=== PATIENT | female | born 1980 | race Caucasian/White ===

== ENCOUNTER 2019-12-11 08:00 | Outpatient (CLI) | payer OTHER ==
[2019-12-11 20:04] LABS: BASOPHILS % (AUTO) 0.4 %; EOSINOPHILS # (AUTO) 0.2 10^3/uL (0.0-0.7); EOSINOPHILS % (AUTO) 2.9 %; HGB - HEMOGLOBIN 11.3 g/dL (12.0-16.0); LYMPHOCYTES # (AUTO) 1.8 10^3/uL (1.5-3.5); LYMPHOCYTES % (AUTO) 22.5 %; MEAN CORPUSCULAR HEMOGLOBIN 28.4 pg (27.0-31.0); MEAN CORPUSCULAR HGB CONC 31.7 g/dL (32.0-36.0); MEAN CORPUSCULAR VOLUME 89.4 fL (81.0-99.0); MONOCYTES # (AUTO) 0.5 10^3/uL (0.0-1.0); MONOCYTES % (AUTO) 6.3 %; NEUTROPHILS # (AUTO) 5.5 10^3/uL (1.5-6.6); NEUTROPHILS % (AUTO) 67.5 %; PLT - PLATELET COUNT 270 10^3/uL (130-450); RED BLOOD COUNT 3.98 10^6/uL (4.20-5.40); WHITE BLOOD COUNT 8.2 x10^3/uL (4.8-10.8)
[2019-12-11 20:28] LABS: ALBUMIN 4.3 g/dL (3.2-5.5); ALBUMIN/GLOBULIN RATIO 1.4 (1.0-2.2); BILIRUBIN,TOTAL 0.4 mg/dL (0.2-1.0); CALCIUM 9.1 mg/dL (8.5-10.3); CREATININE 0.7 mg/dL (0.4-1.0); MAGNESIUM 2.3 mg/dL (1.7-2.8); TOTAL PROTEIN 7.4 g/dL (6.7-8.2)
== END 2019-12-11 23:59 | disposition home or self-care (01) ==
LOC: LAB.S 08:00
PROVIDERS: ATTEND Physician Assistant Medical
DX: R53.83 Other fatigue (principal); R06.02 Shortness of breath; R42 Dizziness and giddiness
CPT/HCPCS: 36415; 80053; 83735; 84443; 85025

== ENCOUNTER 2020-11-03 12:38 | Emergency (ER) | payer OTHER ==
[2020-11-03 13:01] VITALS: BP 132/74
--- NOTE | 2020-11-03 13:01 | ED Physician Documentation ---
PD HPI SKIN - Stated complaint Stated Complaint: BAT EXPOSURE - Chief complaint Chief Complaint: General - History obtained from History obtained from: Patient - History of Present Illness Timing - onset: Last night (A bat flying in theirThe patient awoke to a sound of fluttering wings and loft area of the bedroom/living room. No direct contact with the bat. The patient went into the bathroom while the open the door and the bat was able to fly out.) Timing - details: Other (The patient researched bat exposures online and found information about risk for rabies. They are here for discussion and evaluation.) Location: Other (no direct contact with the bat) Similar symptoms before: Has not had sx before Recently seen: Other Review of Systems Skin: denies: Abrasion (s), Laceration (s) PD PAST MEDICAL HISTORY - Past Medical History Cardiovascular: None Respiratory: None - Allergies Allergies/Adverse Reactions: Allergies Allergy/AdvReac Type Severity Reaction Status Date / Time ciprofloxacin Allergy Hives Verified 11/03/20 12:58 PD ED PE NORMAL - Vitals Vital signs reviewed: Yes - General General: Alert and oriented X 3, No acute distress, Well developed/nourished - Derm Derm: Normal color, Warm and dry - Neuro Neuro: Alert and oriented X 3, Normal speech Results - Vitals Vitals: Vital Signs - 24 hr 11/03/20 12:56 Temperature 36.3 C L Heart Rate 69 Respiratory 15 Rate Blood Pressure 132/74 H O2 Saturation 99 Oxygen O2 Source Room air PD MEDICAL DECISION MAKING - ED course Complexity details: considered differential, d/w patient ED course: The patient did not have any direct contact with the bat. Other family members were well remote in other rooms or not in direct area. Seems a very low incidence chance of rabies exposure. I discussed with the parents about the low risk probability and the overall prevalence of 1% in wild bats and up to 6% in those brought in for testing in the [place] area. We discussed the series of immunoglobulin and vaccines required for treatment. Shared decision amongst them is to not do rabies treatment. Departure - Departure Disposition: 01 Home, Self Care Clinical Impression: Exposure to bat without known bite Condition: Stable Record reviewed to determine appropriate education?: Yes Comments: This sounds very low risk exposure for the rabies virus. I did just look up the prevalence of rabies in wild bats in [place] and it's 1% of bats in the wild with up to 6% of those submitted for testing have rabies virus (so a skewed sampling). So low risk among normal acting bats. The main route for infection is by bites. Discharge Date/Time: 11/03/20 13:58
== END 2020-11-03 13:58 | disposition home or self-care (01) ==
LOC: ED 12:38
DX: Z20.3 Contact with and (suspected) exposure to rabies (principal)
CPT/HCPCS: 99281

== ENCOUNTER 2020-11-04 06:42 | Emergency (ER) | payer OTHER ==
[2020-11-04 06:51] VITALS: BP 126/85
--- NOTE | 2020-11-04 07:36 | ED Physician Documentation ---
History of Present Illness - Stated complaint Stated Complaint: BAT EXPOSURE - Chief complaint Chief Complaint: General - History obtained from History obtained from: Patient - Additonal information Additional information: 40yF presents for second opinion after being seen for possible bat exposure 2 days ago. Review of Systems Constitutional: denies: Fever GI: denies: Nausea Skin: denies: Bite / sting PD PAST MEDICAL HISTORY - Past Medical History Cardiovascular: None Respiratory: None GI: GERD - Allergies Allergies/Adverse Reactions: Allergies Allergy/AdvReac Type Severity Reaction Status Date / Time ciprofloxacin Allergy Hives Verified 11/04/20 06:54 - Social History Does the pt smoke?: No Smoking Status: Never smoker PD ED PE NORMAL - Vitals Vital signs reviewed: Yes - General General: Alert and oriented X 3, No acute distress, Well developed/nourished - HEENT HEENT: Atraumatic, PERRL, EOMI - Neck Neck: Supple, no meningeal sign - Cardiac Cardiac: RRR - Respiratory Respiratory: No respiratory distress, Clear bilaterally - Abdomen Abdomen: Non tender, Non distended - Derm Derm: Normal color, Warm and dry, Other (no bites, abrasions, lacerations) - Extremities Extremities: No deformity - Neuro Neuro: Alert and oriented X 3 - Psych Psych: Other (anxious mood and affect) Results - Vitals Vitals: Vital Signs - 24 hr 11/04/20 06:47 Temperature 36.6 C Heart Rate 103 H Respiratory 18 Rate Blood Pressure 126/85 H O2 Saturation 95 Oxygen O2 Source Room air PD MEDICAL DECISION MAKING - ED course ED course: 40yF with chronic Lyme, Caballero disease, 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 I advised her that she is low risk, having been awake during the encounter, with no evidence of bite mccoy. Did offer to give RIG and vaccine series but patient declined. Will provide reading material. Advised her to f/u with her PMD. Departure - Departure Disposition: 01 Home, Self Care Clinical Impression: Exposure to bat without known bite Condition: Good Comments: You were seen in the emergency department for second opinion about obtaining the rabies immunoglobin and vaccine. Below is some information about the vaccine series. Please contact your primary doctor with any other questions. Return to the emergency department if you decide you would like the vaccine series. Rabies virus vaccine: Patient drug information Copyright 7562-0395 [employer]echies.in. All rights reserved. (For additional information see "Rabies virus vaccine: Drug information" and see "Rabies virus vaccine: Pediatric drug information") You must carefully read the "Consumer Information Use and Disclaimer" below in order to understand and correctly use this information. Brand Names: [place] Imovax Rabies; RabAvert Brand Names: Sangeetha Imovax Rabies What is this drug used for? It is used to prevent rabies. What do I need to tell my doctor BEFORE I take this drug? If you are allergic to this drug; any part of this drug; or any other drugs, foods, or substances. Tell your doctor about the allergy and what signs you had. This drug may interact with other drugs or health problems. Tell your doctor and pharmacist about all of your drugs (prescription or OTC, natural products, vitamins) and health problems. You must check to make sure that it is safe for you to take this drug with all of your drugs and health problems. Do not start, stop, or change the dose of any drug without checking with your doctor. What are some things I need to know or do while I take this drug? Tell all of your health care providers that you take this drug. This includes your doctors, nurses, pharmacists, and dentists. This drug may not protect all people who use it. Talk with the doctor. This drug is made from human plasma (part of the blood) and may have viruses that may cause disease. This drug is screened, tested, and treated to lower the chance that it carries an infection. Talk with the doctor. Very bad side effects have rarely happened with this drug. These include allergic reactions and brain or nervous system problems. Sometimes, brain problems have been deadly. Talk with the doctor. Tell your doctor if you are , plan on getting , or are breast- feeding. You will need to talk about the benefits and risks to you and the baby. What are some side effects that I need to call my doctor about right away? WARNING/CAUTION: Even though it may be rare, some people may have very bad and sometimes deadly side effects when taking a drug. Tell your doctor or get medical help right away if you have any of the following signs or symptoms that may be related to a very bad side effect: Signs of an allergic reaction, like rash; hives; itching; red, swollen, blistered, or peeling skin with or without fever; wheezing; tightness in the chest or throat; trouble breathing, swallowing, or talking; unusual hoarseness; or swelling of the mouth, face, lips, tongue, or throat. Signs of meningitis like headache with fever, stiff neck, upset stomach, confusion, or if lights bother the eyes. Feeling very tired or weak. Not able to move face muscles as much. Muscle weakness. Not able to move. Change in eyesight. Swollen gland. Very bad dizziness or passing out. A burning, numbness, or tingling feeling that is not normal. Trouble controlling body movements. What are some other side effects of this drug? All drugs may cause side effects. However, many people have no side effects or only have minor side effects. Call your doctor or get medical help if any of these side effects or any other side effects bother you or do not go away: Pain, redness, or swelling where the shot was given. Flu-like signs. These include headache, weakness, fever, shakes, aches, pains, and sweating. Upset stomach. Muscle or joint pain. Dizziness. These are not all of the side effects that may occur. If you have questions about side effects, call your doctor. Call your doctor for medical advice about side effects. You may report side effects to your national health agency. How is this drug best taken? Use this drug as ordered by your doctor. Read all information given to you. Follow all instructions closely. It is given as a shot into a muscle. What do I do if I miss a dose? Call your doctor to find out what to do. How do I store and/or throw out this drug? If you need to store this drug at home, talk with your doctor, nurse, or pharmacist about how to store it. General drug facts If your symptoms or health problems do not get better or if they become worse, call your doctor. Do not share your drugs with others and do not take anyone else's drugs. Keep all drugs in a safe place. Keep all drugs out of the reach of children and pets. Throw away unused or drugs. Do not flush down a toilet or pour down a drain unless you are told to do so. Check with your pharmacist if you have questions about the best way to throw out drugs. There may be drug take-back programs in your area. Some drugs may have another patient information leaflet. If you have any questions about this drug, please talk with your doctor, nurse, pharmacist, or other health care provider. If you think there has been an overdose, call your poison control center or get medical care right away. Be ready to tell or show what was taken, how much, and when it happened. CDC Information Vaccine Information Statements (VIS) are made by the staff of the Centers for Disease Control and Prevention (CDC). Each VIS gives information to properly inform the adult receiving the vaccine or, in the case of a minor, the child's parent or legal union representative about the risks and benefits of each vaccine. Before a doctor vaccinates a child or an adult, the provider is required by the National Childhood Vaccine Injury Act to give a copy of the VIS. You can also get foreign language versions. https://www.cdc.gov/vaccines/hcp/vis/vis-statements/rabies.html Last Reviewed Date 2019-01-06 Consumer Information Use and Disclaimer This information should not be used to decide whether or not to take this medicine or any other medicine. Only the healthcare provider has the knowledge and training to decide which medicines are right for a specific patient. This information does not endorse any medicine as safe, effective, or approved for treating any patient or health condition. This is only a brief summary of general information about this medicine. It does NOT include all information about the possible uses, directions, warnings, precautions, interactions, adverse effects, or risks that may apply to this medicine. This information is not specific medical advice and does not replace information you receive from the healthcare provider. You must talk with the healthcare provider for complete information about the risks and benefits of using this medicine. The use of this information is governed by the [employer] End User License Agreement, available at https://www.[employer].Dogeo/en/solutions/appsplit/about/leodan. 202 [employer]. and its affiliates and/or licensors. All rights reserved.
== END 2020-11-04 07:41 | disposition home or self-care (01) ==
LOC: ED 06:42
DX: Z20.3 Contact with and (suspected) exposure to rabies (principal)
CPT/HCPCS: 99281

== ENCOUNTER 2020-11-06 12:46 | Emergency (ER) | payer OTHER ==
[2020-11-06] MEDS ORDERED: RABIES VACCINE 2.5 UNIT SYRINGE IM ONE (14:03)
[2020-11-06] MEDS ORDERED: RABIES IMMUNE GLOBULIN 300 UNITS/2 ML IM STA (14:03)
--- NOTE | 2020-11-06 14:14 | ED Physician Documentation ---
History of Present Illness - Stated complaint Stated Complaint: RABIE SHOT - Chief complaint Chief Complaint: General - History obtained from History obtained from: Patient - Additonal information Additional information: 4 mornings ago she was in the room with a bat. That was subsequently released and not available for examination. Had what might be considered a bite on her back which is now healed. Third visit here for same and now she would like to go ahead with vaccination. Review of Systems Constitutional: reports: Reviewed and negative Nose: reports: Reviewed and negative Throat: reports: Reviewed and negative PD PAST MEDICAL HISTORY - Past Medical History Cardiovascular: None Respiratory: None GI: GERD - Present Medications Home Medications: Ambulatory Orders Medication Instructions Recorded Confirmed Rabies Vaccine [Rabavert] 2.5 unit IM ONCE #3 11/06/20 - Allergies Allergies/Adverse Reactions: Allergies Allergy/AdvReac Type Severity Reaction Status Date / Time ciprofloxacin Allergy Hives Verified 11/06/20 13:01 - Social History Does the pt smoke?: No Smoking Status: Never smoker PD ED PE NORMAL - Vitals Vital signs reviewed: Yes - General General: Alert and oriented X 3, No acute distress - Neuro Neuro: Alert and oriented X 3, Normal speech - Psych Psych: Normal mood, Normal affect Results - Vitals Vitals: Vital Signs - 24 hr 11/06/20 12:59 Temperature 36.5 C Heart Rate 107 H Respiratory 14 Rate Blood Pressure 129/86 H O2 Saturation 100 Oxygen O2 Source Room air Departure - Departure Disposition: 01 Home, Self Care Clinical Impression: Exposure to bat without known bite Condition: Good Record reviewed to determine appropriate education?: Yes Instructions: Rabies Prescriptions: Rabies Vaccine [Rabavert] 2.5 unit IM ONCE #3 Comments: You will need subsequent vaccinations for rabies on days 3, 7, and 14. [facility] carry these. I am writing a prescription for same you should call them and see if they have it in stock. If not you can return for subsequent vaccinations on Wednesday, next Wednesday, and the Wednesday after.
[2020-11-06 16:01] VITALS: BP 130/84
== END 2020-11-06 16:01 | disposition home or self-care (01) ==
LOC: ED 12:46
DX: Z20.3 Contact with and (suspected) exposure to rabies (principal); Z29.14 Encounter for prophylactic rabies immune globulin
CPT/HCPCS: 90471; 96372; 99282; 99283

== ENCOUNTER 2020-11-09 14:32 | Emergency (ER) | payer OTHER ==
[2020-11-09] MEDS ORDERED: RABIES VACCINE 2.5 UNIT SYRINGE IM ONE (14:36)
[2020-11-09 14:49] VITALS: BP 137/100
--- NOTE | 2020-11-09 15:02 | ED Physician Documentation ---
History of Present Illness - Stated complaint Stated Complaint: RABIES SHOT - Chief complaint Chief Complaint: General - History obtained from History obtained from: Patient - History of Present Illness Timing: How many weeks ago (1) - Additonal information Additional information: 40-year-old female had an exposure to a bat in her home last week has started on rabies vaccine. She is here today for her second shot. She has no complaints she has not otherwise been ill. She has not had her Covid vaccination. Review of Systems Constitutional: denies: Fever Eyes: denies: Decreased vision Ears: denies: Ear pain Nose: denies: Congestion Throat: denies: Sore throat Respiratory: denies: Cough GI: denies: Vomiting, Diarrhea PD PAST MEDICAL HISTORY - Past Medical History Cardiovascular: None Respiratory: None GI: GERD - Present Medications Home Medications: Ambulatory Orders Medication Instructions Recorded Confirmed Rabies Vaccine [Rabavert] 2.5 unit IM ONCE #3 11/06/20 - Allergies Allergies/Adverse Reactions: Allergies Allergy/AdvReac Type Severity Reaction Status Date / Time ciprofloxacin Allergy Hives Verified 11/06/20 13:01 - Social History Does the pt smoke?: No Smoking Status: Never smoker PD ED PE NORMAL - Vitals Vital signs reviewed: Yes (tachy and hypertensive ) - General General: Alert and oriented X 3, No acute distress, Well developed/nourished - HEENT HEENT: Atraumatic, PERRL, EOMI - Respiratory Respiratory: No respiratory distress - Derm Derm: Normal color, Warm and dry - Extremities Extremities: No deformity, No edema - Neuro Neuro: Alert and oriented X 3, 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 Departure - Departure Disposition: 01 Home, Self Care Clinical Impression: Exposure to bat without known bite Condition: Stable Instructions: Rabies Follow-Up: Faith Eller ARNP [Credentialed Staff Provider] - Comments: 3rd dose is due WednesdayNov 13.
== END 2020-11-09 15:37 | disposition home or self-care (01) ==
LOC: ED 14:32
DX: Z20.3 Contact with and (suspected) exposure to rabies (principal); Z29.14 Encounter for prophylactic rabies immune globulin
CPT/HCPCS: 90471

== ENCOUNTER 2020-11-18 08:00 | Outpatient (CLI) | payer OTHER | END 2020-11-18 23:59 | disposition home or self-care (01) | LOC: LAB.S 08:00 | PROVIDERS: ATTEND Emergency Medicine | DX: Z01.84 Encounter for antibody response examination (principal); Z20.3 Contact with and (suspected) exposure to rabies | CPT/HCPCS: 36415; 81599; 86382 ==

== ENCOUNTER 2021-01-29 08:00 | Outpatient (CLI) | payer OTHER ==
[2021-01-29 14:52] LABS: BASOPHILS % (AUTO) 0.5 %; EOSINOPHILS # (AUTO) 0.2 10^3/uL (0.0-0.7); EOSINOPHILS % (AUTO) 2.7 %; HGB - HEMOGLOBIN 11.6 g/dL (12.0-16.0); LYMPHOCYTES # (AUTO) 1.4 10^3/uL (1.5-3.5); LYMPHOCYTES % (AUTO) 21.5 %; MEAN CORPUSCULAR HEMOGLOBIN 26.4 pg (27.0-31.0); MEAN CORPUSCULAR HGB CONC 31.4 g/dL (32.0-36.0); MEAN CORPUSCULAR VOLUME 84.3 fL (81.0-99.0); MEAN PLATELET VOLUME 10.7 fL (7.9-10.8); MONOCYTES # (AUTO) 0.5 10^3/uL (0.0-1.0); MONOCYTES % (AUTO) 7.2 %; NEUTROPHILS # (AUTO) 4.5 10^3/uL (1.5-6.6); NEUTROPHILS % (AUTO) 67.9 %; PLT - PLATELET COUNT 298 10^3/uL (130-450); RED BLOOD COUNT 4.39 10^6/uL (4.20-5.40); RED CELL DISTRIBUTION WIDTH 16.2 % (12.0-15.0); WHITE BLOOD COUNT 6.6 x10^3/uL (4.8-10.8)
[2021-01-29 15:29] LABS: ALBUMIN 4.4 g/dL (3.2-5.5); ALBUMIN/GLOBULIN RATIO 1.3 (1.0-2.2); BILIRUBIN,TOTAL 0.6 mg/dL (0.2-1.0); CALCIUM 9.3 mg/dL (8.5-10.3); CREATININE 0.5 mg/dL (0.4-1.0); POTASSIUM 4.3 mmol/L (3.5-5.0); TOTAL PROTEIN 7.7 g/dL (6.7-8.2)
== END 2021-01-29 23:59 ==
LOC: LAB.S 08:00
PROVIDERS: ATTEND Physician Assistant
DX: R19.7 Diarrhea, unspecified (principal)
CPT/HCPCS: 36415; 80053; 83690; 85025

== ENCOUNTER 2021-02-01 16:03 | Emergency (ER) | payer OTHER ==
[2021-02-01 18:04] VITALS: BP 130/85
[2021-02-01] MEDS ORDERED: SODIUM CHLORIDE 0.9% 1,000 ML IV STA (18:04)
[2021-02-01 18:17] LABS: BASOPHILS % (AUTO) 0.4 %; EOSINOPHILS # (AUTO) 0.2 10^3/uL (0.0-0.7); EOSINOPHILS % (AUTO) 2.1 %; HGB - HEMOGLOBIN 11.8 g/dL (12.0-16.0); LYMPHOCYTES # (AUTO) 1.8 10^3/uL (1.5-3.5); LYMPHOCYTES % (AUTO) 23.1 %; MEAN CORPUSCULAR HEMOGLOBIN 27.1 pg (27.0-31.0); MEAN CORPUSCULAR HGB CONC 32.8 g/dL (32.0-36.0); MEAN CORPUSCULAR VOLUME 82.6 fL (81.0-99.0); MEAN PLATELET VOLUME 10.1 fL (7.9-10.8); MONOCYTES # (AUTO) 0.5 10^3/uL (0.0-1.0); MONOCYTES % (AUTO) 6.4 %; NEUTROPHILS # (AUTO) 5.4 10^3/uL (1.5-6.6); NEUTROPHILS % (AUTO) 67.7 %; PLT - PLATELET COUNT 300 10^3/uL (130-450); RED BLOOD COUNT 4.36 10^6/uL (4.20-5.40); RED CELL DISTRIBUTION WIDTH 15.5 % (12.0-15.0)
[2021-02-01 18:28] LABS: ALBUMIN 4.7 g/dL (3.2-5.5); ALBUMIN/GLOBULIN RATIO 1.6 (1.0-2.2); BILIRUBIN,TOTAL 0.5 mg/dL (0.2-1.0); CREATININE 0.6 mg/dL (0.4-1.0); POTASSIUM 3.3 mmol/L (3.5-5.0); TOTAL PROTEIN 7.6 g/dL (6.7-8.2)
--- NOTE | 2021-02-01 18:54 | ED Physician Documentation ---
History of Present Illness - Stated complaint Stated Complaint: DIARRHEA - Chief complaint Chief Complaint: Abd Pain - Additonal information Additional information: 40-year-old female presents emergency department for evaluation of diarrhea. It began about 1 week ago. She reports that initially she was having a lot of cramping and had 6-7 watery stools a day. She began taking lactobacillus and the stools improved. However anytime she would he should find that she had a lot of abdominal cramping. She did see her doctor on Wednesday and he made the recommendation to stop taking lactobacillus. Since then she has had about 3-4 watery stools a day. Nonbloody no fevers. No focal abdominal pain. She does have an appointment with the solid waste landfill technician on Wednesday. Patient is concerned that she could have C. difficile diarrhea as she took a cephalosporin in early to mid December for strep throat. She does endorse a history of irritable bowel syndrome. Past surgical history includes only. Review of Systems Constitutional: denies: Fever, Chills Eyes: reports: Reviewed and negative Nose: reports: Reviewed and negative Throat: reports: Reviewed and negative Cardiac: reports: Reviewed and negative Respiratory: reports: Reviewed and negative GI: reports: Abdominal Pain, Diarrhea. denies: Nausea, Vomiting, Hematemesis, Bloody / black stool : denies: Dysuria, Frequency, Hesitancy Musculoskeletal: reports: Reviewed and negative Neurologic: reports: Reviewed and negative PD PAST MEDICAL HISTORY - Past Medical History Cardiovascular: None Respiratory: None GI: GERD - Present Medications Home Medications: Ambulatory Orders Medication Instructions Recorded Confirmed Rabies Vaccine [Rabavert] 2.5 unit IM ONCE #3 11/06/20 11/09/20 - Allergies Allergies/Adverse Reactions: Allergies Allergy/AdvReac Type Severity Reaction Status Date / Time ciprofloxacin Allergy Hives Verified 02/01/21 16:09 - Social History Does the pt smoke?: No Smoking Status: Never smoker PD ED PE NORMAL - General General: Alert and oriented X 3, No acute distress - HEENT HEENT: PERRL - Neck Neck: Supple, no meningeal sign - Cardiac Cardiac: RRR, No murmur - Respiratory Respiratory: No respiratory distress, Clear bilaterally - Abdomen Abdomen: Soft, Non tender, Non distended. 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, No motor deficit Eye Opening: Spontaneous Motor: Obeys Commands Verbal: Oriented GCS Score: 15 - Psych Psych: Normal mood Results - Vitals Vitals: Vital Signs - 24 hr 02/01/21 02/01/21 16:09 18:04 Temperature 36.5 C Heart Rate 100 93 Respiratory 16 18 Rate Blood Pressure 130/86 H 130/85 H O2 Saturation 99 100 Oxygen O2 Source Room air - Labs Labs: Laboratory Tests 02/01/21 02/01/21 02/01/21 18:11 18:11 18:11 WBC 8.0 RBC 4.36 Hgb 11.8 L Hct 36.0 L MCV 82.6 MCH 27.1 MCHC 32.8 RDW 15.5 H Plt Count 300 MPV 10.1 Neut # (Auto) 5.4 Lymph # (Auto) 1.8 [place] # (Auto) 0.5 Eos # (Auto) 0.2 Baso # (Auto) 0.0 Absolute Nucleated RBC 0.00 Nucleated RBC % 0.0 Sodium 134 L Potassium 3.3 L Chloride 101 Carbon Dioxide 22 Anion Gap 11.0 BUN 6 Creatinine 0.6 Estimated GFR (MDRD) 110 Glucose 97 Calcium 9.0 Total Bilirubin 0.5 AST 14 ALT 10 Alkaline Phosphatase 43 Total Protein 7.6 Albumin 4.7 Globulin 2.9 Albumin/Globulin Ratio 1.6 Lipase 31 Serum HCG, Qual NEGATIVE PD MEDICAL DECISION MAKING - ED course Complexity details: reviewed results, re-evaluated patient, considered differential, d/w patient ED course: 40-year-old female presents emergency department for evaluation of ongoing diarrhea for about 1 week. Nonbloody no fevers. This did follow a course of a cephalosporin for treatment of strep throat. Patient is concerned she could have C. difficile and a stool PCR is pending. She has unremarkable vital signs without hypotension or tachycardia. Abdominal exam was unremarkable without focal tenderness. Did note hyperactive bowel sounds. Screening labs show a very minor anemia with a hemoglobin of 11.8. No leukocytosis. No significant electrolyte derangement. Patient was given a liter of fluid here in the ER. I did offer CT imaging but she declines it at this time. We also discussed the possibility of initiating antibiotics prophylactically but she would like to defer this as well. She does have GI follow-up on Wednesday. We discussed that the etiology of the diarrhea may be related to her history of irritable bowel syndrome however could also be related to the antibiotics. I have encouraged her to continue with psyllium fiber husk supplementation as well as lactobacillus. The patient is hesitant to take Imodium as she is afraid of the opposite reaction of constipation. Overall she appears very well with no red flags and a benign abdominal exam. Emergent return precautions were discussed. Departure - Departure Disposition: Home, Self Care Clinical Impression: Diarrhea Qualifiers: Diarrhea type: unspecified type Qualified Code(s): R19.7 - Diarrhea, unspecified Condition: Stable Record reviewed to determine appropriate education?: Yes Comments: Jailyn you were seen today in the ER for diarrhea. I will call you later this evening or tomorrow morning to discuss the C. difficile results. I think in general deferring a CAT scan and antibiotics are appropriate at this time. I would like you to make sure he stay well-hydrated. I recommend you drink half-strength Gatorade or drink Pedialyte. I do recommend that you continue the lactobacillus as well as the psyllium fiber husk's. Continue follow-up with GI on Wednesday. If your symptoms change, you have sudden severe pain, black or bloody stools, or develop any fevers then please return immediately to the ER for a second evaluation
[2021-02-01 19:06] LABS: HCG,QUALITATIVE BLOOD NEGATIVE
== END 2021-02-01 19:56 | disposition home or self-care (01) ==
LOC: ED 16:03
DX: R19.7 Diarrhea, unspecified (principal); Z87.19 Personal history of other diseases of the digestive system; D64.9 Anemia, unspecified
CPT/HCPCS: 36415; 80053; 83690; 84703; 85025; 87493; 99282; 99283

== ENCOUNTER 2021-02-02 19:01 | Emergency (ER) | payer OTHER ==
[2021-02-02 19:09] VITALS: BP 145/95
--- NOTE | 2021-02-02 19:29 | ED Physician Documentation ---
History of Present Illness - Stated complaint Stated Complaint: DIARRHEA, NOW CONSTIPATION - Chief complaint Chief Complaint: Abd Pain - Additonal information Additional information: This is a very pleasant but somewhat anxious 40-year-old female who comes to the emergency department because she has not had a bowel movement today. I saw her yesterday because she had about 1 week of diarrhea. Her screening labs showed no acute worrisome abnormalities. Her C. difficile stool was negative. She reports that she has taken psyllium fiber husk's as well as lactobacillus. She had a tiny bowel movement this morning and despite eating 3 small meals today has not had a full bowel movement. She is also not passed any gas. She denies any focal or significant abdominal pain. No cramping. No fevers or vomiting. She admits to being anxious and reports that reading in the Internet she is concerned that she could have a bowel. She stated that a few years ago her small dog had uncontrolled vomiting and though he appeared to be getting better when she took him to the vet he ultimately because of bowel ischemia Review of Systems Constitutional: reports: Reviewed and negative Ears: reports: Reviewed and negative Nose: reports: Reviewed and negative Throat: reports: Reviewed and negative Cardiac: reports: Reviewed and negative Respiratory: reports: Reviewed and negative GI: reports: Constipation, Diarrhea. denies: Abdominal Pain, Nausea, Vomiting : reports: Reviewed and negative Skin: reports: Reviewed and negative Musculoskeletal: reports: Reviewed and negative PD PAST MEDICAL HISTORY - Past Medical History Past Medical History: Yes Cardiovascular: None Respiratory: None GI: GERD Psych: Anxiety - Present Medications Home Medications: Ambulatory Orders Medication Instructions Recorded Confirmed Rabies Vaccine [Rabavert] 2.5 unit IM ONCE #3 11/06/20 11/09/20 - Allergies Allergies/Adverse Reactions: Allergies Allergy/AdvReac Type Severity Reaction Status Date / Time ciprofloxacin Allergy Hives Verified 02/02/21 19:05 - Social History Does the pt smoke?: No Smoking Status: Never smoker Does the pt drink ETOH?: No Does the pt have substance abuse?: No - Immunizations Immunizations are current?: Yes PD ED PE NORMAL - General General: Alert and oriented X 3, No acute distress - HEENT HEENT: PERRL - Neck Neck: Supple, no meningeal sign - Cardiac Cardiac: RRR, No murmur - Respiratory Respiratory: Clear bilaterally - Abdomen Abdomen: Normal bowel sounds (in all 4 quadrants), Soft, Non tender, Non distended - Derm Derm: Normal color, Warm and dry, No rash - Extremities Extremities: No deformity, No tenderness to palpate, Normal ROM s pain - Neuro Neuro: Alert and oriented X 3, memory care program director 2-12 intact Eye Opening: Spontaneous Motor: Obeys Commands Verbal: Oriented GCS Score: 15 Results - Vitals Vitals: Vital Signs - 24 hr 02/02/21 19:05 Temperature 36.5 C Heart Rate 100 Respiratory 16 Rate Blood Pressure 145/95 H O2 Saturation 100 Oxygen O2 Source Room air - Labs Labs: Laboratory Tests 02/02/21 19:40 Lactic Acid 1.0 PD MEDICAL DECISION MAKING - ED course Complexity details: reviewed results, re-evaluated patient, considered dif ferential, d/w patient ED course: This is a very sweet and anxious 40-year-old female that is obsessively concerned that she could have bowel ischemia secondary to her recent bout of constipation and diarrhea. Screening labs yesterday were unremarkable. Today her abdominal exam is entirely benign. She has no fevers or vomiting. Normal vitals. I discussed with her that the likelihood of bowel ischemia being almost 100% absent if her lactate was normal. Therefore we will send a lactic acid and if normal discharge home. Patient is scheduled to see a production support specialist tomorrow Departure - Departure Disposition: 01 Home, Self Care Clinical Impression: Constipation Qualifiers: Constipation type: unspecified constipation type Qualified Code(s): K59.00 - Constipation, unspecified Condition: Stable Record reviewed to determine appropriate education?: Yes Comments: Jailyn your lactic acid is normal. It is not elevated. I cannot say with 100% certainty that you do not have dying bowel or intestine. Please continue to see your production support specialist tomorrow. I recommend that you stay well-hydrated and continue the psyllium fiber husk's. I do suspect that you will start to have regular bowel movements over the next 24 to 48 hours.
== END 2021-02-02 20:38 | disposition home or self-care (01) ==
LOC: ED 19:01
DX: K59.00 Constipation, unspecified (principal); F41.9 Anxiety disorder, unspecified
CPT/HCPCS: 36415; 83605; 99282; 99283

== ENCOUNTER 2021-03-29 11:27 | Outpatient (CLI) | payer OTHER ==
--- NOTE | 2021-03-29 12:31 | XRAY Report ---
PROCEDURE: Chest 2 View X-Ray INDICATIONS: SHORTNESS OF BREATH/CHEST PAIN BILATERALLY TECHNIQUE: 2 view(s) of the chest. COMPARISON: None. FINDINGS: Surgical changes and devices: None. Lungs and pleura: No pleural effusions or pneumothorax. Mild right lower lobe atelectasis and or inf iltrate noted medially. Mediastinum: Mediastinal contours are normal. Heart size is normal. Bones and chest wall: No suspicious bony abnormalities. Soft tissues appear unremarkable. IMPRESSION: Mild right lower lobe atelectasis and or infiltrate Reviewed by: Denver Maldonado MD on 03/29/2021 11:30 AM [facility] Approved by: Denver Maldonado MD on 03/29/2021 11:30 AM [facility] Station ID: [id number]
[2021-03-29 15:34] LABS: BASOPHILS # (AUTO) 0.1 10^3/uL (0.0-0.1); BASOPHILS % (AUTO) 0.7 %; EOSINOPHILS # (AUTO) 0.2 10^3/uL (0.0-0.7); EOSINOPHILS % (AUTO) 3.2 %; HCT - HEMATOCRIT 36.4 % (37.0-47.0); HGB - HEMOGLOBIN 11.3 g/dL (12.0-16.0); LYMPHOCYTES # (AUTO) 1.5 10^3/uL (1.5-3.5); LYMPHOCYTES % (AUTO) 21.1 %; MEAN CORPUSCULAR HEMOGLOBIN 25.3 pg (27.0-31.0); MEAN CORPUSCULAR VOLUME 81.6 fL (81.0-99.0); MONOCYTES # (AUTO) 0.4 10^3/uL (0.0-1.0); MONOCYTES % (AUTO) 5.5 %; NEUTROPHILS # (AUTO) 4.8 10^3/uL (1.5-6.6); NEUTROPHILS % (AUTO) 69.2 %; PLT - PLATELET COUNT 301 10^3/uL (130-450); RED BLOOD COUNT 4.46 10^6/uL (4.20-5.40); RED CELL DISTRIBUTION WIDTH 14.8 % (12.0-15.0)
[2021-03-29 16:04] LABS: ALBUMIN 4.4 g/dL (3.2-5.5); ALBUMIN/GLOBULIN RATIO 1.4 (1.0-2.2); BILIRUBIN,TOTAL 0.9 mg/dL (0.2-1.0); CALCIUM 9.1 mg/dL (8.5-10.3); CREATININE 0.5 mg/dL (0.4-1.0); POTASSIUM 3.9 mmol/L (3.5-5.0); TOTAL PROTEIN 7.6 g/dL (6.7-8.2)
== END 2021-03-29 23:59 | disposition home or self-care (01) ==
LOC: DI.S 11:27
PROVIDERS: ATTEND Registered Nurse
DX: R06.02 Shortness of breath (principal)
CPT/HCPCS: 36415; 80053; 84484; 85025; 85379

== ENCOUNTER 2021-04-16 08:00 | Outpatient (CLI) | payer OTHER | END 2021-04-16 23:59 | LOC: LAB.S 08:00 | PROVIDERS: ATTEND Physician Assistant Medical | DX: J02.9 Acute pharyngitis, unspecified (principal) | CPT/HCPCS: 87070 ==

== ENCOUNTER 2021-07-10 06:53 | Emergency (ER) | payer OTHER ==
--- NOTE | 2021-07-10 07:06 | ED Physician Documentation ---
PD HPI ABD PAIN - Stated complaint Stated Complaint: ABD PAIN/SOA - Chief complaint Chief Complaint: Abd Pain - History obtained from History obtained from: Patient - History of Present Illness Timing - onset: How many weeks ago (has had epigastric pain intermittently, worse with food, for month or more. Has gotten more consistent and increased severity the past week/several days.) Timing - details: Gradual onset, Intermittant (but more frequent and now consistent the past several days.) Quality: Aching, Pain Location: Epigastric Radiation: Chest. No: Lower back, Left flank, Right flank Improved by: Meds (TUMs). No: Eating Worsened by: Eating, Palpation (epigastric area.). No: Breathing Associated symptoms: Nausea, Diarrhea (loose and light colored at times. No blood nor melena.). No: Fever Similar symptoms before: Has not had sx before Recently seen: Clinic (seen by GI NURSE PRACTITIONER PHYSICIANS ASSISTANT few weeks ago with outpt U/S ordered. No meds Rx. Pt also saw her [facility] [place] who did stool studies with result of positive H Pylori, resistant to clarithromycin.) Review of Systems Constitutional: denies: Fever, Chills Nose: denies: Rhinorrhea / runny nose, Congestion Throat: denies: Sore throat Cardiac: reports: Chest pain / pressure. denies: Palpitations Respiratory: denies: Dyspnea, Cough GI: reports: Nausea. denies: Vomiting, Diarrhea, Bloody / black stool (light colored and loose often) : denies: Dysuria, Frequency PD PAST MEDICAL HISTORY - Past Medical History Cardiovascular: None Respiratory: None GI: GERD Psych: Anxiety - Present Medications Home Medications: Ambulatory Orders Medication Instructions Recorded Confirmed Bismuth Subsalicylate 524 mg PO BID 14 Days #56 tab.chew 07/10/21 Doxycycline Hyclate 100 mg PO BID 14 Days #28 cap 07/10/21 Omeprazole Magnesium 20 mg PO BID 14 Days #28 cap 07/10/21 Ondansetron Odt [Zofran] 4 mg TL Q6H PRN #20 tablet 07/10/21 metroNIDAZOLE [Flagyl] 500 mg PO BID 14 Days #28 tablet 07/10/21 - Allergies Allergies/Adverse Reactions: Allergies Allergy/AdvReac Type Severity Reaction Status Date / Time ciprofloxacin Allergy Hives Verified 07/10/21 07:02 - Social History Does the pt smoke?: No Smoking Status: Never smoker Does the pt drink ETOH?: No Does the pt have substance abuse?: No - Immunizations Immunizations are current?: Yes PD ED PE NORMAL - Vitals Vital signs reviewed: Yes - General General: Alert and oriented X 3, No acute distress, Well developed/nourished - HEENT HEENT: Moist mucous membranes, Pharynx benign - Neck Neck: Supple, no meningeal sign, No adenopathy - Cardiac Cardiac: RRR, No murmur - Respiratory Respiratory: Clear bilaterally - Abdomen Abdomen: Normal bowel sounds, Soft, Non distended, No organomegaly, Other (tender in epigastric area with local guarding but no percussion tenderness. RUQ itself not tender. ) - Derm Derm: Normal color, Warm and dry - Extremities Extremities: No edema, No calf tenderness / cord - Neuro Neuro: Alert and oriented X 3, No motor deficit, Normal speech Results - Vitals Vitals: Vital Signs - 24 hr 07/10/21 07/10/21 07/10/21 06:55 07:13 09:00 Temperature 36.6 C Heart Rate 101 H 98 75 Respiratory 18 23 16 Rate Blood Pressure 130/88 H 116/79 111/71 O2 Saturation 100 100 99 Oxygen O2 Source Room air - EKG (time done) 07:13 Rate: Rate (enter#) (98) Rhythm: NSR [place]: Normal Intervals: Normal [place], Other QRS: Normal Ischemia: Normal ST segments. No: ST elevation c/w ischemia, ST depression - Labs Labs: Laboratory Tests 07/10/21 07/10/21 07/10/21 07:05 07:05 07:05 WBC 7.2 RBC 4.56 Hgb 10.9 L Hct 35.3 L MCV 77.4 L MCH 23.9 L MCHC 30.9 L RDW 14.6 Plt Count 286 MPV 10.3 Neut # (Auto) 4.1 Lymph # (Auto) 2.2 [place] # (Auto) 0.5 Eos # (Auto) 0.3 Baso # (Auto) 0.0 Absolute Nucleated RBC 0.00 Nucleated RBC % 0.0 Sodium 135 Potassium 3.6 Chloride 103 Carbon Dioxide 23 Anion Gap 9.0 BUN 5 L Creatinine 0.6 Estimated GFR (MDRD) 110 Glucose 94 Calcium 9.2 Total Bilirubin 0.8 AST 16 ALT 12 Alkaline Phosphatase 41 L Troponin I High Sens < 2.3 L B-Natriuretic Peptide Total Protein 7.8 Albumin 4.7 Globulin 3.1 Albumin/Globulin Ratio 1.5 Lipase 36 Urine Color Urine Clarity Urine pH Ur Specific [place] Urine Protein Urine Glucose (UA) Urine Ketones Urine Occult Blood Urine Nitrite Urine Bilirubin Urine Urobilinogen Ur Leukocyte Esterase Ur Microscopic Review Urine Culture Comments 07/10/21 07/10/21 07:05 09:07 WBC RBC Hgb Hct MCV MCH MCHC RDW Plt Count MPV Neut # (Auto) Lymph # (Auto) [place] # (Auto) Eos # (Auto) Baso # (Auto) Absolute Nucleated RBC Nucleated RBC % Sodium Potassium Chloride Carbon Dioxide Anion Gap BUN Creatinine Estimated GFR (MDRD) Glucose Calcium Total Bilirubin AST ALT Alkaline Phosphatase Troponin I High Sens B-Natriuretic Peptide 20 Total Protein Albumin Globulin Albumin/Globulin Ratio Lipase Urine Color LIGHT YELLOW Urine Clarity CLEAR Urine pH 7.0 Ur Specific [place] 1.010 Urine Protein NEGATIVE Urine Glucose (UA) NEGATIVE Urine Ketones 15 H Urine Occult Blood NEGATIVE Urine Nitrite NEGATIVE Urine Bilirubin NEGATIVE Urine Urobilinogen 0.2 (NORMAL) Ur Leukocyte Esterase NEGATIVE Ur Microscopic Review NOT INDICATED Urine Culture Comments NOT INDICATED - Rads (name of study) chest xray Radiology: Prelim report reviewed (no acute process), See rad report PD MEDICAL DECISION MAKING - ED course Complexity details: considered differential (epigastric pain radiating to chest. CXR/ECG/trop are okay. recent outpt U/S of RUQ showing normal GB. presume gastritis vs ulcer, related to HPylori from recent stool.), d/w patient, d/w operations consultant (technical documentation specialist GI Dr. Ch - she concurred with starting HPylori quad therapy. ) Departure - Departure Disposition: 01 Home, Self Care Clinical Impression: Epigastric pain, Helicobacter positive gastritis Condition: Stable Instructions: ED PUD Vs Gastritis Follow-Up: Faith Eller ARNP [Primary Care Provider] - Prescriptions: Bismuth Subsalicylate 524 mg PO BID 14 Days #56 tab.chew Doxycycline Hyclate 100 mg PO BID 14 Days #28 cap metroNIDAZOLE [Flagyl] 500 mg PO BID 14 Days #28 tablet Omeprazole Magnesium 20 mg PO BID 14 Days #28 cap Ondansetron Odt [Zofran] 4 mg TL Q6H PRN #20 tablet PRN Reason: Nausea / Vomiting Comments: I talked with the on-call pastry cook apprentice for [facility], Dr. Gil. She would like us to start treatment for you for the H. pylori to help clear your gastritis/ulcer. This is a combination of medications including omeprazole for acid reduction, bismuth subsalicylate for inflammation of the stomach and intestine as well as to antibiotics doxycycline and metronidazole twice daily for 2 weeks. Stay well-hydrated. You can use antacids such as Maalox or Mylanta if needed as well for discomfort. Tylenol if needed for pains. Ondansetron if needed for nausea. [place] food. You could also add in some probiotic supplements. You are also somewhat anemic. At this point I would probably hold off on the iron supplements unless you take a whole food type iron supplement so its not as irritating on your stomach given all the above medications as well. You could consult with your proposal rep about other iron supplements. Follow-up with your pastry cook apprentice as scheduled. Discharge Date/Time: 07/10/21 09:57
[2021-07-10] MEDS ORDERED: FAMOTIDINE 20 MG/2 ML VIAL IVP STA (07:25)
[2021-07-10] MEDS ORDERED: SODIUM CHLORIDE 0.9% 1,000 ML IV STA (07:25)
[2021-07-10] MEDS ORDERED: LIDOCAINE VISCOUS 2% 15 ML UDC MM STA (07:25)
[2021-07-10] MEDS ORDERED: MAG HYDROX/AL HYDROX/SIMETH 30 ML UDC PO STA (07:25)
[2021-07-10 07:30] LABS: ALBUMIN 4.7 g/dL (3.2-5.5); ALBUMIN/GLOBULIN RATIO 1.5 (1.0-2.2); BILIRUBIN,TOTAL 0.8 mg/dL (0.2-1.0); CALCIUM 9.2 mg/dL (8.5-10.3); CREATININE 0.6 mg/dL (0.4-1.0); POTASSIUM 3.6 mmol/L (3.5-5.0); TOTAL PROTEIN 7.8 g/dL (6.7-8.2)
[2021-07-10 07:33] LABS: BASOPHILS % (AUTO) 0.6 %; EOSINOPHILS # (AUTO) 0.3 10^3/uL (0.0-0.7); EOSINOPHILS % (AUTO) 4.6 %; HCT - HEMATOCRIT 35.3 % (37.0-47.0); HGB - HEMOGLOBIN 10.9 g/dL (12.0-16.0); LYMPHOCYTES # (AUTO) 2.2 10^3/uL (1.5-3.5); MEAN CORPUSCULAR HEMOGLOBIN 23.9 pg (27.0-31.0); MEAN CORPUSCULAR HGB CONC 30.9 g/dL (32.0-36.0); MEAN CORPUSCULAR VOLUME 77.4 fL (81.0-99.0); MEAN PLATELET VOLUME 10.3 fL (7.9-10.8); MONOCYTES # (AUTO) 0.5 10^3/uL (0.0-1.0); MONOCYTES % (AUTO) 7.5 %; NEUTROPHILS # (AUTO) 4.1 10^3/uL (1.5-6.6); NEUTROPHILS % (AUTO) 56.2 %; PLT - PLATELET COUNT 286 10^3/uL (130-450); RED BLOOD COUNT 4.56 10^6/uL (4.20-5.40); RED CELL DISTRIBUTION WIDTH 14.6 % (12.0-15.0); WHITE BLOOD COUNT 7.2 x10^3/uL (4.8-10.8)
--- NOTE | 2021-07-10 07:50 | XRAY Report ---
PROCEDURE: Chest 1 View X-Ray INDICATIONS: chest pain TECHNIQUE: One view of the chest was acquired. COMPARISON: 03/29/2021 FINDINGS: Surgical changes and devices: None. Lungs and pleura: No pleural effusions or pneumothorax. Lungs are clear. Mediastinum: Mediastinal contours appear normal. Heart size is normal. Bones and chest wall: No suspicious bony lesions. Overlying soft tissues appear unremarkable. IMPRESSION: No evidence acute pulmonary process. Reviewed by: Brayan Joregnsen MD on 07/10/2021 7:49 AM PDT Approved by: Brayan Jorgensen MD on 07/10/2021 7:49 AM PDT Station ID: [id number]
[2021-07-10 09:14] LABS: BILIRUBIN,URINE NEGATIVE (NEGATIVE); GLUCOSE, URINE (UA) NEGATIVE (NEGATIVE); KETONES,URINE (UA) 15 mg/dL (NEGATIVE); LEUKOCYTE ESTERASE, URINE NEGATIVE (NEGATIVE); NITRITE,URINE NEGATIVE (NEGATIVE); OCCULT BLOOD,URINE NEGATIVE (NEGATIVE); PROTEIN,URINE NEGATIVE (NEGATIVE); UROBILINOGEN,URINE 0.2 (NORMAL) E.U./dL (NORMAL)
[2021-07-10 09:15] VITALS: BP 111/71
[2021-07-10 09:15] LABS: CLARITY,URINE CLEAR (CLEAR)
== END 2021-07-10 09:57 | disposition home or self-care (01) ==
LOC: ED 06:53
DX: K29.60 Other gastritis without bleeding (principal); R10.13 Epigastric pain; R07.9 Chest pain, unspecified
CPT/HCPCS: 36415; 71045; 80053; 81003; 83690; 83880; 84484; 85025; 85379; 93005; 96374; 99284; A9270; 81001; 87086

== ENCOUNTER 2021-07-10 08:00 | Outpatient (CLI) | payer OTHER | END 2021-07-11 22:33 | disposition home or self-care (01) | LOC: LAB.S 08:00 | PROVIDERS: ATTEND Physician Assistant Medical | DX: R07.9 Chest pain, unspecified (principal) | CPT/HCPCS: 36415; 85379 ==

== ENCOUNTER 2021-09-02 07:47 | Outpatient (CLI) | payer OTHER | END 2021-09-02 07:48 | disposition home or self-care (01) | LOC: DI 07:47 | PROVIDERS: ATTEND Internal Medicine Cardiovascular Disease | DX: R07.9 Chest pain, unspecified (principal); R00.2 Palpitations | CPT/HCPCS: 93306 ==

== ENCOUNTER 2022-01-23 08:00 | Outpatient (CLI) | payer OTHER | END 2022-01-23 23:59 | disposition home or self-care (01) | LOC: LAB.S 08:00 | PROVIDERS: ATTEND Emergency Medicine | DX: J02.9 Acute pharyngitis, unspecified (principal) | CPT/HCPCS: 87070 ==

== ENCOUNTER 2022-02-02 14:42 | Outpatient (CLI) | payer OTHER ==
--- NOTE | 2022-02-02 17:10 | XRAY Report ---
PROCEDURE: Chest 2 View X-Ray INDICATIONS: PALPITATIONS, CHEST TIGHTNESS TECHNIQUE: 2 views of the chest were acquired. COMPARISON: Chest x-ray, 07/10/2021 and 03/29/2021 FINDINGS: Surgical changes and devices: None. Lungs and pleura: Mild right lower lobe infiltrate. No pleural effusions or pneumothorax. Mediastinum: Mediastinal contours are normal. Heart size is normal. Bones and chest wall: No suspicious bony abnormalities. Soft tissues appear unremarkable. IMPRESSION: Mild right lower lobe infiltrate suspicious for developing pneumonia. Reviewed by: Misty Nunes MD on 02/02/2022 5:09 PM PST Approved by: Misty Nunes MD on 02/02/2022 5:09 PM PST Station ID: [id number]
[2022-02-02 20:09] LABS: BASOPHILS % (AUTO) 0.3 %; EOSINOPHILS # (AUTO) 0.2 10^3/uL (0.0-0.7); EOSINOPHILS % (AUTO) 2.9 %; HCT - HEMATOCRIT 37.2 % (37.0-47.0); HGB - HEMOGLOBIN 11.2 g/dL (12.0-16.0); LYMPHOCYTES # (AUTO) 2.1 10^3/uL (1.5-3.5); LYMPHOCYTES % (AUTO) 28.6 %; MEAN CORPUSCULAR HEMOGLOBIN 23.9 pg (27.0-31.0); MEAN CORPUSCULAR HGB CONC 30.1 g/dL (32.0-36.0); MEAN CORPUSCULAR VOLUME 79.5 fL (81.0-99.0); MEAN PLATELET VOLUME 10.9 fL (7.9-10.8); MONOCYTES # (AUTO) 0.7 10^3/uL (0.0-1.0); MONOCYTES % (AUTO) 9.1 %; NEUTROPHILS # (AUTO) 4.4 10^3/uL (1.5-6.6); NEUTROPHILS % (AUTO) 58.7 %; PLT - PLATELET COUNT 260 10^3/uL (130-450); RED BLOOD COUNT 4.68 10^6/uL (4.20-5.40); RED CELL DISTRIBUTION WIDTH 15.8 % (12.0-15.0); WHITE BLOOD COUNT 7.5 x10^3/uL (4.8-10.8)
[2022-02-02 20:37] LABS: ALBUMIN 4.2 g/dL (3.2-5.5); ALBUMIN/GLOBULIN RATIO 1.3 (1.0-2.2); ALKALINE PHOSPHATASE 41 IU/L (42-121); ALT ALANINE AMINOTRANSFERASE 14 IU/L (10-60); AST ASPARTATE AMINOTRANSFERASE 15 IU/L (10-42); BILIRUBIN,TOTAL 0.3 mg/dL (0.2-1.0); BUN - BLOOD UREA NITROGEN 8 mg/dL (6-20); CARBON DIOXIDE - CO2 25 mmol/L (21-32); CHLORIDE 104 mmol/L (101-111); CREATININE 0.5 mg/dL (0.4-1.0); GFR - MDRD 135 (>89); GLUCOSE 110 mg/dL (70-100); POTASSIUM 3.8 mmol/L (3.5-5.0); SODIUM 137 mmol/L (135-145); TOTAL PROTEIN 7.5 g/dL (6.7-8.2)
[2022-02-02 20:42] LABS: THYROID STIMULATING HORMONE 0.67 uIU/mL (0.34-5.60)
[2022-02-02 21:24] LABS: CRP - C-REACTIVE PROTEIN < 1.0 mg/dL (0-1.0)
== END 2022-02-02 14:43 | disposition home or self-care (01) ==
LOC: DI.S 14:42
PROVIDERS: ATTEND Registered Nurse
DX: R91.8 Other nonspecific abnormal finding of lung field (principal); R07.89 Other chest pain; R00.2 Palpitations
CPT/HCPCS: 36415; 80053; 84443; 84484; 85025; 86140